=== PATIENT | male | born 1980 | race Caucasian/White ===

== ENCOUNTER 2022-03-07 21:37 | Emergency (ER) | payer BC | END 2022-03-07 22:35 | disposition home or self-care (01) | LOC: ERS 21:37 | DX: J95.03 Malfunction of tracheostomy stoma (principal); G43.909 Migraine, unspecified, not intractable, without status migrainosus; Z79.82 Long term (current) use of aspirin; Z79.899 Other long term (current) drug therapy | CPT/HCPCS: 31502 ==

== ENCOUNTER 2022-03-15 15:51 | Emergency (ER) | payer BC | END 2022-03-15 19:03 | disposition home or self-care (01) | LOC: ERS 15:51 | DX: J95.09 Other tracheostomy complication (principal); Z86.73 Personal history of transient ischemic attack (TIA), and cerebral infarction without residual deficits | CPT/HCPCS: 71046; J7620 ==

== ENCOUNTER 2022-05-23 11:10 | Outpatient (CLI) | payer BC, OTHER | END 2022-05-23 11:11 | disposition home or self-care (01) | LOC: DTY/OP 11:10 | PROVIDERS: ATTEND Internal Medicine | DX: E44.0 Moderate protein-calorie malnutrition (principal) | CPT/HCPCS: 97802 ==

== ENCOUNTER 2022-09-12 09:32 | Outpatient (CLI) | payer BC | END 2022-09-12 09:33 | disposition home or self-care (01) | LOC: RAD 09:32 | PROVIDERS: ATTEND Psychiatry & Neurology Neurology | DX: R13.10 Dysphagia, unspecified (principal); R63.30 Feeding difficulties, unspecified | CPT/HCPCS: 74230 ==